=== PATIENT | male | born 1960 | race Caucasian/White ===

== ENCOUNTER → 2019-08-05 | Outpatient (CLI) | payer BC ==
[~2019-08-05] MED LIST: ATOR10 PO; IOHEXOL-350 75 ML VIAL IV ONE; LISI1TAB32 PO
== END | disposition home or self-care (01) ==
LOC: RAH 09:55
PROVIDERS: ATTEND Family Medicine
DX: K57.90 Diverticulosis of intestine, part unspecified, without perforation or abscess without bleeding (principal); I51.7 Cardiomegaly; N28.1 Cyst of kidney, acquired
CPT/HCPCS: 71275; Q9967

== ENCOUNTER → 2019-08-19 | Outpatient (CLI) | payer BC ==
[~2019-08-19] MED LIST changes: -IOHEXOL-350 75 ML VIAL IV ONE; +REGADENOSON 0.4 MG/5 ML PF SYG IVP SCH
== END | disposition home or self-care (01) ==
LOC: RAH 08:44
PROVIDERS: ATTEND Family Medicine
DX: R06.02 Shortness of breath (principal); R07.89 Other chest pain; R06.00 Dyspnea, unspecified
CPT/HCPCS: 78452; 93017; 96374; A9500 ×2; J2785

== ENCOUNTER → 2022-04-29 | Outpatient (CLI) | payer BC ==
[~2022-04-29] MED LIST changes: -LISI1TAB32 PO; +LISI1TAB49 PO; -REGADENOSON 0.4 MG/5 ML PF SYG IVP SCH
== END | disposition home or self-care (01) ==
LOC: RAH 14:39
PROVIDERS: ATTEND Urology
DX: K40.20 Bilateral inguinal hernia, without obstruction or gangrene, not specified as recurrent (principal); K57.30 Diverticulosis of large intestine without perforation or abscess without bleeding; N20.0 Calculus of kidney; N23 Unspecified renal colic
CPT/HCPCS: 74176